=== PATIENT | male | born 1975 | race Caucasian/White ===

== ENCOUNTER 2022-01-31 09:29 | Emergency (ER) | payer OTHER ==
[~2022-01-31] VITALS: Ht 193 cm; Wt 127.0 kg
[2022-01-31] MEDS ORDERED: ALLO300 PO (09:55)
[2022-01-31] MEDS ORDERED: Prinivil10 MG PO (09:55)
[2022-01-31] MEDS ORDERED: ZOCOR20 MG PO (09:55)
[2022-01-31] MEDS ORDERED: THERA-D2000 UNIT PO (09:56)
[2022-01-31] MEDS ORDERED: Aspir 8181 MG PO (09:56)
[2022-01-31] MEDS ORDERED: VITAMIN A PO (09:57)
[2022-01-31] MEDS ORDERED: DOXYCYCLINE PO (09:58)
[2022-01-31] MEDS ORDERED: IBUP800 PO (10:09)
[2022-01-31] MEDS ORDERED: PSEU120ER PO (10:09)
== END 2022-01-31 10:18 | disposition home or self-care (01) ==
LOC: ER 09:29
DX: J06.9 Acute upper respiratory infection, unspecified (principal); I10 Essential (primary) hypertension; Z88.0 Allergy status to penicillin; Z91.02 Food additives allergy status; Z79.899 Other long term (current) drug therapy; Z79.82 Long term (current) use of aspirin; Z87.891 Personal history of nicotine dependence
CPT/HCPCS: 99283